=== PATIENT | male | born 1960 | race Caucasian/White ===

== ENCOUNTER 2024-12-23 11:30 | Day surgery (SDC) | payer BC ==
[2024-12-22 09:32] VITALS: BP 123/71; PULSE 80; RESP 18; TEMP 97.9; O2SAT 96
[2024-12-22 10:30] LABS: BASOPHIL # 0.0 10^3/uL (0.0-0.1); BASOPHIL % 0.4 % (0.2-1.2); EOSINOPHIL # 0.2 10^3/uL (0.0-0.2); EOSINOPHIL % 3.0 % (0.0-5.0); HEMATOCRIT(ML) 50.7 % (37.0-53.0); IG % 0.20 % (0.00-0.50); LYMPHOCYTES # 0.78 10^3/uL1 (1.0-4.8); LYMPHOCYTES % 14.8 % (24.0-44.0); MEAN CORP HGB 30.7 pg (26-34); MEAN CORP HGB CONCENTRATION 33.7 g/dL (33-36.5); MEAN CORP VOLUME 91.0 fL (78-100); MONOCYTES # 0.5 10^3/uL (0.3-0.8); MONOCYTES % 8.7 % (5.0-12.0); NEUTROPHIL # 3.9 10^3/uL (1.8-7.7); NEUTROPHILS % 72.9 % (41.0-85.0); RED BLOOD CELL 5.57 10^6/uL (4.50-5.90); RED CELL DISTRIBUTION WIDTH 13.3 % (11.5-14.5); WHITE BLOOD CELL 5.3 10^3/uL (4.5-11.0)
[2024-12-22 10:43] LABS: INR 1.0; PROTHROMBIN PROTIME 10.6 SEC (9.3-11.6)
[2024-12-22 10:52] LABS: CREATININE SERUM 1.16 mg/dL (0.59-1.40); EST GFR, NON-AA 63.6 (>/=60)
[2024-12-23] VITALS (11 sets, daily range): BP systolic 109–136; BP diastolic 62–89; PULSE 80–96; RESP 16–18; TEMP 97.1–97.7; O2SAT 92–99
[~2024-12-23] VITALS: Ht 180.3 cm; Wt 106.6 kg
[~2024-12-23 11:30] MED LIST: EMPA25TA PO; INSU100I31 SQ; LISI20TA21 PO; METF10007 PO; NS 1000ML 1,000 ML ONE; PRAV20TA PO; TIRZ5PEN SQ
[2024-12-23] MEDS: NS 1000ML 1,000 ML IV SCH (12:00)
[2024-12-23] MEDS ORDERED: SUBLIMAZE 100MCG/2ML ONE (13:18)
[2024-12-23] MEDS ORDERED: VERSED ONE ×2 (13:18→14:09)
[2024-12-23] MEDS ORDERED: HEPARIN ONE ×2 (13:27→14:22)
[2024-12-23] MEDS ORDERED: ASPIRIN ONE (14:44)
[2024-12-23] MEDS ORDERED: EFFIENT PO ONE (14:44)
[2024-12-23] MEDS ORDERED: PRAV40TA PO (15:07)
[2024-12-23] MEDS ORDERED: OLME20TA72 PO (15:07)
[2024-12-23] MEDS ORDERED: PRAS10TA20 PO (15:07)
[2024-12-23] MEDS ORDERED: ASPI-929 PO (15:07)
== END 2024-12-23 17:18 | disposition home or self-care (01) ==
LOC: SDC 11:30
PROVIDERS: ATTEND Internal Medicine
DX: R94.39 Abnormal result of other cardiovascular function study (principal); I25.10 Atherosclerotic heart disease of native coronary artery without angina pectoris; Z79.02 Long term (current) use of antithrombotics/antiplatelets
CPT/HCPCS: 85025; 36415; 80048; 85610; 93005; 82948; 99153; 99152; 93458; C9600; J7030; J1644 ×3; A6258; C1887 ×2; J2250 ×2; J3010; A4618; C1725; E0617; C1874; C1769 ×2; C1766; Q9967; J8499